=== PATIENT | male | born 1980 | race African-American/Black ===

== ENCOUNTER 2016-10-17 13:02 | Emergency (ER) | payer MEDICAID ==
[~2016-10-17] VITALS: Ht 193 cm; Wt 103.0 kg
[~2016-10-17 13:02] MED LIST: AMLO5TAB4 PO; ATEN50TA PO; ATOR10TA PO; LISI10TA5 PO
[2016-10-17] MEDS ORDERED: TRAMADOL 50MG TABLET PO ONE (17:00)
[2016-10-17] MEDS ORDERED: CLONIDINE 0.2MG TABLET PO NR (17:30)
[2016-10-17] MEDS ORDERED: HYDROCHLOROTHIAZIDE 25MG TABLET PO ONE (18:59)
[2016-10-17] MEDS ORDERED: LISINOPRIL 20MG TABLET PO ONE (19:00)
[2016-10-17] MEDS ORDERED: AMLODIPINE 10MG TABLET PO ONE (19:00)
[2016-10-17 21:25] VITALS: BP 149/88
== END 2016-10-17 22:24 | disposition home or self-care (01) ==
LOC: ER 14:34
DX: I10 Essential (primary) hypertension (principal); E78.00 Pure hypercholesterolemia, unspecified
CPT/HCPCS: 36415; 71010; 84484; 93005; 99285; Z7610

== ENCOUNTER 2018-04-13 15:13 | Emergency (ER) | payer MEDICAID ==
[~2018-04-13] VITALS: Ht 193 cm; Wt 158.0 kg
[2018-04-13] MEDS ORDERED: ALBUTEROL (0.083%) 2.5MG/3ML NEB HHN STA (18:14)
[2018-04-13] MEDS ORDERED: PREDNISONE 20MG TABLET PO STA (18:14)
[2018-04-13] MEDS ORDERED: CLONIDINE 0.1MG TABLET PO ONE (18:30)
[2018-04-13 19:07] VITALS: BP 160/98
== END 2018-04-13 19:09 | disposition home or self-care (01) ==
LOC: ER 15:13
DX: J40 Bronchitis, not specified as acute or chronic (principal); I10 Essential (primary) hypertension; F17.200 Nicotine dependence, unspecified, uncomplicated; E78.00 Pure hypercholesterolemia, unspecified; Z79.899 Other long term (current) drug therapy
CPT/HCPCS: 71045; 94640; 99283; J7512; J7611

== ENCOUNTER 2019-02-16 15:34 | Emergency (ER) | payer MEDICAID ==
[~2019-02-16] VITALS: Ht 193 cm; Wt 163.0 kg
[2019-02-16] MEDS ORDERED: KETOROLAC 60MG/2ML VIAL IM ONE (17:15)
[2019-02-16 19:05] VITALS: BP 164/102
== END 2019-02-16 19:15 | disposition home or self-care (01) ==
LOC: ER 15:34
DX: S60.221A Contusion of right hand, initial encounter (principal); S90.32XA Contusion of left foot, initial encounter; S39.012A Strain of muscle, fascia and tendon of lower back, initial encounter; I10 Essential (primary) hypertension; Y04.0XXA Assault by unarmed brawl or fight, initial encounter; Y93.89 Activity, other specified; Y92.89 Other specified places as the place of occurrence of the external cause; E66.9 Obesity, unspecified; Z68.41 Body mass index [BMI] 40.0-44.9, adult; Z79.899 Other long term (current) drug therapy
CPT/HCPCS: 72100; 73130; 73630; 96372; 99283; J1885

== ENCOUNTER 2019-04-08 12:30 | Emergency (ER) | payer MEDICAID ==
[~2019-04-08] VITALS: Ht 193 cm; Wt 160.0 kg
[2019-04-08] MEDS ORDERED: VISCOUS LIDOCAINE 2% 15 ML UDC PO STA (22:58)
[2019-04-08] MEDS ORDERED: FAMOTIDINE 20MG/2ML VIAL IV STA (22:58)
[2019-04-08] MEDS ORDERED: MAGNESIUM/ALUMINUM HYDROXIDE/SIMETHICONE 30ML UDC PO STA (22:58)
[2019-04-08 23:14] LABS: BASOPHILS % 0.7 % (0.0-2.0); EOSINOPHILS % 3.7 % (0.0-5.0); HEMATOCRIT. 44.5 % (42.0-52.0); HEMOGLOBIN. 14.7 g/dL (14.0-18.0); LYMPHOCYTES % 36.5 % (20.0-50.0); MEAN CORPUSCULAR HEMOGLOBIN 30.9 pg (28.0-32.0); MEAN CORPUSCULAR VOLUME 93.3 fL (80.0-94.0); MEAN PLATELET VOLUME 9.8 fl (7.4-10.4); MONOCYTES % 5.3 % (2.0-8.0); NEUTROPHILS % 53.8 % (40.0-76.0); PLATELET 211 x1000/uL (130-400); RED BLOOD CELL COUNT 4.77 mill/uL (4.7-6.1); RED CELL DISTRIBUTION WIDTH 13.8 % (11.6-14.6)
[2019-04-08 23:16] LABS: CHLORIDE 115 mEq/L (98-107)
[2019-04-09] MEDS ORDERED: POTASSIUM CHLORIDE 20MEQ TABLET SR PO ONE
[2019-04-09 01:45] VITALS: BP 160/98
== END 2019-04-09 01:49 | disposition home or self-care (01) ==
LOC: ER 12:30
DX: R10.13 Epigastric pain (principal); I10 Essential (primary) hypertension; F17.210 Nicotine dependence, cigarettes, uncomplicated; Z71.6 Tobacco abuse counseling; Z79.899 Other long term (current) drug therapy
CPT/HCPCS: 36415; 80053; 83690; 85025; 93005; 96374; 99284; 99406; J3490

== ENCOUNTER 2019-10-26 13:10 | Emergency (ER) | payer MEDICAID ==
[~2019-10-26] VITALS: Ht 193 cm; Wt 120.0 kg
[2019-10-26] MEDS ORDERED: MORPHINE SULFATE 4 MG/ML CPJ (NOT FOR IM USE) IV STA (13:42)
[2019-10-26] MEDS ORDERED: ONDANSETRON HCL 4MG/2ML INJ IV STA (13:42)
[2019-10-26 14:15] LABS: EOSINOPHILS % 4.5 % (0.0-5.0); HEMATOCRIT. 42.7 % (42.0-52.0); HEMOGLOBIN. 14.3 g/dL (14.0-18.0); MEAN CORPUSCULAR HEMOGLOBIN 31.3 pg (28.0-32.0); MEAN CORPUSCULAR VOLUME 93.3 fL (80.0-94.0); MEAN PLATELET VOLUME 9.7 fl (7.4-10.4); MONOCYTES % 7.2 % (2.0-8.0); NEUTROPHILS % 52.3 % (40.0-76.0); PLATELET 196 x1000/uL (130-400); RED BLOOD CELL COUNT 4.58 mill/uL (4.7-6.1); RED CELL DISTRIBUTION WIDTH 13.1 % (11.6-14.6)
[2019-10-26 14:24] LABS: CHLORIDE 108 mEq/L (98-107)
[2019-10-26 18:44] VITALS: BP 140/75
== END 2019-10-26 18:45 | disposition home or self-care (01) ==
LOC: ER 13:10
DX: I16.0 Hypertensive urgency (principal); M54.12 Radiculopathy, cervical region; I10 Essential (primary) hypertension
CPT/HCPCS: 36415; 72125; 80053; 85025; 93005; 96374; 96375; 99285; J2270; J2405

== ENCOUNTER 2020-12-09 16:35 | Emergency (ER) | payer MEDICAID ==
[~2020-12-09] VITALS: Ht 188 cm; Wt 163.0 kg
[~2020-12-09 16:35] MED LIST changes: +LISI10TA26 PO; -LISI10TA5 PO
[2020-12-09] MEDS ORDERED: IPRATROPIUM/ALBUTEROL 0.5-3(2.5)MG/3ML NEB HHN ONE (18:45)
[2020-12-09 19:05] LABS: BASOPHILS % 0.7 % (0.0-2.0); EOSINOPHILS % 5.2 % (0.0-5.0); HEMATOCRIT. 43.2 % (42.0-52.0); HEMOGLOBIN. 14.8 g/dL (14.0-18.0); LYMPHOCYTES % 35.5 % (20.0-50.0); MEAN CORPUSCULAR HEMOGLOBIN 31.3 pg (28.0-32.0); MEAN CORPUSCULAR VOLUME 91.5 fL (80.0-94.0); MEAN PLATELET VOLUME 8.9 fl (7.4-10.4); MONOCYTES % 6.8 % (2.0-8.0); NEUTROPHILS % 51.8 % (40.0-76.0); PLATELET 210 x1000/uL (130-400); RED BLOOD CELL COUNT 4.72 mill/uL (4.7-6.1); RED CELL DISTRIBUTION WIDTH 13.6 % (11.6-14.6)
[2020-12-09 19:09] LABS: CHLORIDE 109 mEq/L (98-107)
[2020-12-09] MEDS ORDERED: ALBU6.7H9 INH (20:11)
[2020-12-09 20:45] VITALS: BP 131/85
== END 2020-12-09 20:50 | disposition home or self-care (01) ==
LOC: ER 16:35
DX: J40 Bronchitis, not specified as acute or chronic (principal); F17.290 Nicotine dependence, other tobacco product, uncomplicated; F12.10 Cannabis abuse, uncomplicated; I10 Essential (primary) hypertension; Z20.822 Contact with and (suspected) exposure to COVID-19
CPT/HCPCS: 36415; 71045; 80053; 83880; 84484; 85025; 93005; 94640; 96372; 99285; C9803; U0003; U0005; Z7610

== ENCOUNTER 2021-08-01 23:02 | Emergency (ER) | payer MEDICAID ==
[~2021-08-01] VITALS: Ht 195.6 cm; Wt 163.0 kg
[~2021-08-01 23:02] MED LIST changes: +ALBU6.7H9 INH
[2021-08-01] MEDS ORDERED: ASPIRIN 81MG TABLET PO ONE (23:15)
[2021-08-01 23:40] LABS: BASOPHILS % 1.1 % (0.0-2.0); EOSINOPHILS % 4.3 % (0.0-5.0); HEMATOCRIT. 44.2 % (42.0-52.0); HEMOGLOBIN. 14.7 g/dL (14.0-18.0); LYMPHOCYTES % 36.2 % (20.0-50.0); MEAN CORPUSCULAR HEMOGLOBIN 30.9 pg (28.0-32.0); MEAN CORPUSCULAR VOLUME 92.6 fL (80.0-94.0); MEAN PLATELET VOLUME 9.7 fl (7.4-10.4); MONOCYTES % 6.7 % (2.0-8.0); NEUTROPHILS % 51.7 % (40.0-76.0); PLATELET 199 x1000/uL (130-400); RED BLOOD CELL COUNT 4.77 mill/uL (4.7-6.1); RED CELL DISTRIBUTION WIDTH 13.6 % (11.6-14.6)
[2021-08-01 23:47] LABS: CHLORIDE 108 mEq/L (98-107)
[2021-08-02] MEDS ORDERED: ASPIRIN 81MG TABLET PO NR (01:00)
[2021-08-02] MEDS ORDERED: POTASSIUM CHLORIDE 20MEQ TABLET SR PO ONE (01:30)
[2021-08-02 04:18] VITALS: BP 158/110
[2021-08-02] MEDS ORDERED: IOHEXOL-350 100 ML BOTTLE ONE (04:23)
== END 2021-08-02 04:37 | disposition home or self-care (01) ==
LOC: ER 23:02
DX: R07.89 Other chest pain (principal); F12.10 Cannabis abuse, uncomplicated; I11.0 Hypertensive heart disease with heart failure; I50.9 Heart failure, unspecified; E78.00 Pure hypercholesterolemia, unspecified
CPT/HCPCS: 36415; 71045; 71275; 80053; 83880; 84484; 85025; 85379; 93005; 99285; Q9967

== ENCOUNTER 2021-08-22 11:40 | Emergency (ER) | payer MEDICAID ==
[~2021-08-22] VITALS: Ht 195.6 cm; Wt 165.0 kg
[2021-08-22 11:43] VITALS: BP 161/104
[2021-08-22 12:27] LABS: EOSINOPHILS % 4.6 % (0.0-5.0); HEMATOCRIT. 42.2 % (42.0-52.0); LYMPHOCYTES % 35.6 % (20.0-50.0); MEAN CORPUSCULAR HEMOGLOBIN 30.9 pg (28.0-32.0); MEAN CORPUSCULAR VOLUME 93.2 fL (80.0-94.0); MEAN PLATELET VOLUME 9.6 fl (7.4-10.4); MONOCYTES % 5.9 % (2.0-8.0); NEUTROPHILS % 52.9 % (40.0-76.0); PLATELET 186 x1000/uL (130-400); RED BLOOD CELL COUNT 4.53 mill/uL (4.7-6.1); RED CELL DISTRIBUTION WIDTH 14.1 % (11.6-14.6)
[2021-08-22 12:31] LABS: CHLORIDE 109 mEq/L (98-107)
[2021-08-22] MEDS ORDERED: MED4 MT (17:11)
[2021-08-22] MEDS ORDERED: ALBU6.7H9 INH (17:11)
[2021-08-22] MEDS ORDERED: AZIT250T12 MT (17:11)
== END 2021-08-22 17:23 | disposition home or self-care (01) ==
LOC: ER 11:40
DX: J20.9 Acute bronchitis, unspecified (principal); J84.9 Interstitial pulmonary disease, unspecified; I44.7 Left bundle-branch block, unspecified; F17.210 Nicotine dependence, cigarettes, uncomplicated; Z71.6 Tobacco abuse counseling
CPT/HCPCS: 36415; 71045; 80053; 84484; 85025; 93005; 99285; 99406

== ENCOUNTER 2021-09-04 11:03 | Inpatient (IN) | payer MEDICAID, OTHER ==
[~2021-09-04] VITALS: Ht 193 cm; Wt 168.7 kg
[~2021-09-04 11:03] MED LIST changes: +AZIT250T12 MT; +MED4 MT
[2021-09-04 12:09] LABS: BASOPHILS % 0.5 % (0.0-2.0); EOSINOPHILS % 3.4 % (0.0-5.0); HEMATOCRIT. 43.2 % (42.0-52.0); LYMPHOCYTES % 26.4 % (20.0-50.0); MEAN CORPUSCULAR HEMOGLOBIN 30.9 pg (28.0-32.0); MEAN CORPUSCULAR VOLUME 95.1 fL (80.0-94.0); MEAN PLATELET VOLUME 9.1 fl (7.4-10.4); MONOCYTES % 5.9 % (2.0-8.0); NEUTROPHILS % 63.8 % (40.0-76.0); PLATELET 192 x1000/uL (130-400); RED BLOOD CELL COUNT 4.54 mill/uL (4.7-6.1); RED CELL DISTRIBUTION WIDTH 14.7 % (11.6-14.6)
[2021-09-04 12:18] LABS: CHLORIDE 110 mEq/L (98-107)
[2021-09-04 13:43] LABS: CLARITY URINE CLEAR (CLEAR); COLOR URINE DARK YELLOW (YELLOW); KETONES URINE TRACE (NEGATIVE); LEUKOCYTE ESTERASE URINE NEGATIVE (NEGATIVE); NITRITE URINE NEGATIVE (NEGATIVE); OCCULT BLOOD URINE NEGATIVE (NEGATIVE); PROTEIN URINE TRACE (NEGATIVE); SPECIFIC GRAVITY URINE 1.025 (1.005-1.030)
[2021-09-04] MEDS ORDERED: ASPIRIN 325MG EC TABLET PO ONE (17:00)
[2021-09-04 17:45] VITALS: BP 150/103
[2021-09-04] MEDS ORDERED: IPRATROPIUM/ALBUTEROL 0.5-3(2.5)MG/3ML NEB HHN PRN (18:15)
[2021-09-04] MEDS ORDERED: ONDANSETRON HCL 4MG/2ML INJ IV PRN (18:15)
[2021-09-04] MEDS ORDERED: CLONIDINE 0.1MG TABLET PO PRN (18:15)
[2021-09-04] MEDS ORDERED: ENOXAPARIN 40MG/0.4ML SYR SUBCUT SCH (18:15)
[2021-09-04] MEDS ORDERED: ACETAMINOPHEN 325MG TABLET PO PRN (18:15)
[2021-09-04] MEDS ORDERED: DIPHENHYDRAMINE 50MG/ML VIAL IV PRN (18:15)
[2021-09-04 20:00] VITALS: BP 114/79
[2021-09-04 20:05] VITALS: BP 114/79
[2021-09-04] MEDS: ENOXAPARIN 40MG/0.4ML SYR SUBCUT SCH (20:28)
[2021-09-04] MEDS ORDERED: IOHEXOL-350 100 ML BOTTLE ONE (23:12)
[2021-09-05 04:00] VITALS: BP 137/97
[2021-09-05 06:43] LABS: BASOPHILS % 0.7 % (0.0-2.0); EOSINOPHILS % 3.4 % (0.0-5.0); HEMATOCRIT. 42.9 % (42.0-52.0); HEMOGLOBIN. 14.1 g/dL (14.0-18.0); LYMPHOCYTES % 38.9 % (20.0-50.0); MEAN CORPUSCULAR HEMOGLOBIN 31.1 pg (28.0-32.0); MEAN CORPUSCULAR VOLUME 94.8 fL (80.0-94.0); MEAN PLATELET VOLUME 9.8 fl (7.4-10.4); MONOCYTES % 5.7 % (2.0-8.0); NEUTROPHILS % 51.3 % (40.0-76.0); PLATELET 209 x1000/uL (130-400); RED BLOOD CELL COUNT 4.52 mill/uL (4.7-6.1); RED CELL DISTRIBUTION WIDTH 14.8 % (11.6-14.6)
[2021-09-05 06:51] LABS: CHLORIDE 110 mEq/L (98-107)
[2021-09-05 08:00] VITALS: BP 140/97
[2021-09-05] MEDS: ENOXAPARIN 40MG/0.4ML SYR SUBCUT SCH (08:16)
[2021-09-05] MEDS ORDERED: FUROSEMIDE 40MG/4ML VIAL IVP NR (10:00)
[2021-09-05 12:00] VITALS: BP 155/101
[2021-09-05 16:00] VITALS: BP 143/100
[2021-09-05] MEDS: LOSARTAN POTASSIUM 25 MG TABLET PO SCH (16:54)
[2021-09-05] MEDS: FUROSEMIDE 40MG/4ML VIAL IVP SCH (16:54)
[2021-09-05] MEDS: SPIRONOLACTONE 25MG TABLET PO SCH (16:55)
[2021-09-05 18:02] LABS: *AMPHETAMINES SCREEN URINE NEGATIVE (NEGATIVE); *BARBITURATES SCREEN URINE NEGATIVE (NEGATIVE); *BENZODIAZEPINES SCREEN URINE NEGATIVE (NEGATIVE); *COCAINE SCREEN URINE NEGATIVE (NEGATIVE); CANNABINOID URINE SCREEN NEGATIVE (NEGATIVE); METHADONE URINE SCREEN NEGATIVE (NEGATIVE); OPIATES URINE SCREEN NEGATIVE (NEGATIVE); PHENCYCLIDINE URINE SCREEN NEGATIVE (NEGATIVE)
[2021-09-05 18:08] LABS: CLARITY URINE CLEAR (CLEAR); COLOR URINE YELLOW (YELLOW); KETONES URINE NEGATIVE (NEGATIVE); LEUKOCYTE ESTERASE URINE NEGATIVE (NEGATIVE); NITRITE URINE NEGATIVE (NEGATIVE); OCCULT BLOOD URINE NEGATIVE (NEGATIVE); PROTEIN URINE NEGATIVE (NEGATIVE); SPECIFIC GRAVITY URINE 1.008 (1.005-1.030); UROBILINOGEN URINE 0.2 E.U./dL (0.2-1.0)
[2021-09-05 18:21] LABS: BG BASE EXCESS 2.6 mmol/L (-2.0-2.0); BG CARBOXYHEMOGLOBIN 0.7 % (0.5-1.5); BG DEOXYHEMOGLOBIN 10.5 % (0.0-5.0); BG FRACTION INSPIRED OXYGEN 21; BG HCO3 ACT 26.5 mmol/L (22.0-26.0); BG METHEMOGLOBIN 0.3 % (0.0-1.5); BG OXYGEN SATURATION 89.4 % (92.0-98.5); BG OXYHEMOGLOBIN 88.5 % (94.0-97.0); BG PCO2 38.5 mmHg (35.0-45.0); BG PH 7.455 (7.350-7.450); BG PO2 55.9 mmHg (75.0-100.0); BG SAMPLE SITE RIGHT RADIAL; BG TOTAL HEMOGLOBIN 14.9 g/dL (12.0-18.0); BG VENT MODE ROOM AIR
[2021-09-05 20:00] VITALS: BP 137/88
[2021-09-05] MEDS: CARVEDILOL 3.125 MG TABLET PO SCH (21:49)
[2021-09-06] VITALS: BP 121/79
[2021-09-06] MEDS: ENOXAPARIN 40MG/0.4ML SYR SUBCUT SCH ×3 (01:31→20:27)
[2021-09-06 04:00] VITALS: BP 137/99
[2021-09-06] MEDS: FUROSEMIDE 40MG/4ML VIAL IVP SCH ×2 (06:21→17:10)
[2021-09-06 06:34] LABS: BASOPHILS % 0.7 % (0.0-2.0); HEMATOCRIT. 40.4 % (42.0-52.0); HEMOGLOBIN. 13.4 g/dL (14.0-18.0); LYMPHOCYTES % 32.5 % (20.0-50.0); MEAN CORPUSCULAR HEMOGLOBIN 31.3 pg (28.0-32.0); MEAN CORPUSCULAR VOLUME 94.5 fL (80.0-94.0); MEAN PLATELET VOLUME 9.9 fl (7.4-10.4); NEUTROPHILS % 55.8 % (40.0-76.0); PLATELET 187 x1000/uL (130-400); RED BLOOD CELL COUNT 4.27 mill/uL (4.7-6.1); RED CELL DISTRIBUTION WIDTH 14.5 % (11.6-14.6)
[2021-09-06 06:46] LABS: CHLORIDE 108 mEq/L (98-107)
[2021-09-06 08:00] VITALS: BP 125/84
[2021-09-06] MEDS: CARVEDILOL 3.125 MG TABLET PO SCH ×2 (09:42→20:28)
[2021-09-06] MEDS: LOSARTAN POTASSIUM 25 MG TABLET PO SCH (09:42)
[2021-09-06] MEDS: SPIRONOLACTONE 25MG TABLET PO SCH (09:42)
[2021-09-06 12:00] VITALS: BP 122/90
[2021-09-06 20:00] VITALS: BP 136/91
[2021-09-07] VITALS: BP 135/85
[2021-09-07 04:00] VITALS: BP 121/85
[2021-09-07 05:53] LABS: CHLORIDE 108 mEq/L (98-107)
[2021-09-07 06:11] LABS: BASOPHILS % 0.7 % (0.0-2.0); HEMATOCRIT. 41.6 % (42.0-52.0); HEMOGLOBIN. 13.5 g/dL (14.0-18.0); LYMPHOCYTES % 38.4 % (20.0-50.0); MEAN CORPUSCULAR HEMOGLOBIN 30.7 pg (28.0-32.0); MEAN CORPUSCULAR VOLUME 94.5 fL (80.0-94.0); MEAN PLATELET VOLUME 9.7 fl (7.4-10.4); MONOCYTES % 7.2 % (2.0-8.0); NEUTROPHILS % 49.7 % (40.0-76.0); PLATELET 186 x1000/uL (130-400); RED CELL DISTRIBUTION WIDTH 14.7 % (11.6-14.6)
[2021-09-07] MEDS: FUROSEMIDE 40MG/4ML VIAL IVP SCH (06:19)
[2021-09-07 08:58] VITALS: BP 122/80
[2021-09-07] MEDS: SPIRONOLACTONE 25MG TABLET PO SCH (09:06)
[2021-09-07] MEDS: CARVEDILOL 3.125 MG TABLET PO SCH (09:06)
[2021-09-07] MEDS: LOSARTAN POTASSIUM 25 MG TABLET PO SCH (09:06)
[2021-09-07] MEDS: ENOXAPARIN 40MG/0.4ML SYR SUBCUT SCH (09:07)
[2021-09-07] MEDS ORDERED: FURO40TA5 MT (10:44)
[2021-09-07] MEDS ORDERED: POTA8CAP20 MT (10:44)
[2021-09-07] MEDS ORDERED: SPIR25TA PO (10:44)
[2021-09-07] MEDS ORDERED: LOSA25TA3 PO (10:44)
[2021-09-07] MEDS ORDERED: COR3 PO (10:44)
[2021-09-07 12:00] VITALS: BP 117/86
[2021-09-07 12:47] VITALS: BP 117/86
[2021-09-07] MEDS ORDERED: CARVEDILOL 3.125 MG TABLET PO SCH (21:00)
== END 2021-09-07 16:46 | disposition home or self-care (01) | DRG 194 ==
LOC: ER 11:03 → 6WST 12:35 → ENRESERV 15:36
PROVIDERS: ADMIT Internal Medicine; ATTEND Internal Medicine
DX: I11.0 Hypertensive heart disease with heart failure (principal); J96.00 Acute respiratory failure, unspecified whether with hypoxia or hypercapnia; I50.21 Acute systolic (congestive) heart failure; I42.0 Dilated cardiomyopathy; J81.1 Chronic pulmonary edema; K76.0 Fatty (change of) liver, not elsewhere classified; Z20.822 Contact with and (suspected) exposure to COVID-19; E66.01 Morbid (severe) obesity due to excess calories; E78.5 Hyperlipidemia, unspecified; G47.33 Obstructive sleep apnea (adult) (pediatric); I34.0 Nonrheumatic mitral (valve) insufficiency; E78.00 Pure hypercholesterolemia, unspecified; J20.9 Acute bronchitis, unspecified; E80.6 Other disorders of bilirubin metabolism; K76.9 Liver disease, unspecified; Z68.42 Body mass index [BMI] 45.0-49.9, adult; Z86.16 Personal history of COVID-19; F17.200 Nicotine dependence, unspecified, uncomplicated; Z79.899 Other long term (current) drug therapy
CPT/HCPCS: 36415; 36600; 71045; 71275; 76700; 80048; 80053; 80305; 81003; 82375; 82805; 83880; 84484; 85025; 85379; 87426; 93005; 93306; 93970; 94640; 94664; 97162; 97166; 99285; C9803; J1650; J1940; Q9967

== ENCOUNTER 2021-10-22 12:13 | Inpatient (IN) | payer MEDICAID, OTHER ==
[~2021-10-22] VITALS: Ht 193 cm; Wt 164.5 kg
[~2021-10-22 12:13] MED LIST changes: -AMLO5TAB4 PO; -ATEN50TA PO; -ATOR10TA PO; -AZIT250T12 MT; +COR3 PO; +FURO40TA5 MT; -LISI10TA26 PO; +LOSA25TA3 PO; -MED4 MT; +POTA8CAP20 MT; +SPIR25TA PO
[2021-10-22] MEDS ORDERED: FUROSEMIDE 40MG/4ML VIAL IV ONE (13:45)
[2021-10-22 14:00] LABS: EOSINOPHILS % 3.7 % (0.0-5.0); HEMATOCRIT. 42.8 % (42.0-52.0); HEMOGLOBIN. 14.2 g/dL (14.0-18.0); LYMPHOCYTES % 32.5 % (20.0-50.0); MEAN CORPUSCULAR HEMOGLOBIN 31.1 pg (28.0-32.0); MEAN CORPUSCULAR VOLUME 94.2 fL (80.0-94.0); MEAN PLATELET VOLUME 9.8 fl (7.4-10.4); MONOCYTES % 7.5 % (2.0-8.0); NEUTROPHILS % 55.3 % (40.0-76.0); PLATELET 171 x1000/uL (130-400); RED BLOOD CELL COUNT 4.55 mill/uL (4.7-6.1); RED CELL DISTRIBUTION WIDTH 14.2 % (11.6-14.6)
[2021-10-22 14:48] LABS: CHLORIDE 109 mEq/L (98-107)
[2021-10-22 23:00] VITALS: BP 147/107
[2021-10-22] MEDS ORDERED: *PATIENT'S OWN MEDICATION STORAGE XX SCH (23:45)
[2021-10-23] VITALS: BP_SYST 135; BP_SYST 147; BP_DIAS 107; BP_DIAS 98
[2021-10-23] MEDS ORDERED: ONDANSETRON HCL 4MG/2ML INJ IV PRN
[2021-10-23] MEDS ORDERED: CLONIDINE 0.1MG TABLET PO PRN
[2021-10-23] MEDS ORDERED: ACETAMINOPHEN 325MG TABLET PO PRN
[2021-10-23 04:00] VITALS: BP 115/83
[2021-10-23 06:31] LABS: *AMPHETAMINES SCREEN URINE NEGATIVE (NEGATIVE); *BARBITURATES SCREEN URINE NEGATIVE (NEGATIVE); *BENZODIAZEPINES SCREEN URINE NEGATIVE (NEGATIVE); *COCAINE SCREEN URINE NEGATIVE (NEGATIVE); CANNABINOID URINE SCREEN NEGATIVE (NEGATIVE); METHADONE URINE SCREEN NEGATIVE (NEGATIVE); OPIATES URINE SCREEN NEGATIVE (NEGATIVE); PHENCYCLIDINE URINE SCREEN NEGATIVE (NEGATIVE)
[2021-10-23] MEDS ORDERED: FUROSEMIDE 40MG/4ML VIAL IVP SCH (07:15)
[2021-10-23 08:00] VITALS: BP 128/82
[2021-10-23] MEDS: LOSARTAN POTASSIUM 25 MG TABLET PO SCH (08:47)
[2021-10-23] MEDS: SPIRONOLACTONE 25MG TABLET PO SCH (08:47)
[2021-10-23] MEDS: FUROSEMIDE 40MG/4ML VIAL IVP SCH ×2 (08:47→18:14)
[2021-10-23] MEDS: POTASSIUM CHLORIDE 8 MEQ TABLET.SA PO SCH (08:48)
[2021-10-23] MEDS: AMIODARONE HCL 200 MG TABLET PO SCH (08:48)
[2021-10-23] MEDS: CARVEDILOL 6.25 MG TABLET PO SCH ×2 (08:48→20:35)
[2021-10-23] MEDS ORDERED: ENOXAPARIN 30MG/0.3ML SYR SUBCUT SCH (09:00)
[2021-10-23 09:44] LABS: CHLORIDE 107 mEq/L (98-107)
[2021-10-23 09:51] LABS: HDL CHOLESTEROL 38 mg/dL (40-59); LDL CHOLESTEROL 97 mg/dL (5-100)
[2021-10-23 11:47] VITALS: BP 130/90
[2021-10-23] MEDS ORDERED: IPRATROPIUM/ALBUTEROL 0.5-3(2.5)MG/3ML NEB HHN PRN (12:45)
[2021-10-23 16:00] VITALS: BP 132/82
[2021-10-23] MEDS: ENOXAPARIN 40MG/0.4ML SYR SUBCUT SCH (20:35)
[2021-10-23 20:39] VITALS: BP 136/96
[2021-10-24] VITALS: BP 118/73
[2021-10-24 04:00] VITALS: BP 139/95
[2021-10-24] MEDS: FUROSEMIDE 40MG/4ML VIAL IVP SCH ×2 (06:17→17:08)
[2021-10-24 08:00] VITALS: BP 129/79
[2021-10-24] MEDS: AMIODARONE HCL 200 MG TABLET PO SCH (08:27)
[2021-10-24] MEDS: LOSARTAN POTASSIUM 25 MG TABLET PO SCH (08:27)
[2021-10-24] MEDS: POTASSIUM CHLORIDE 8 MEQ TABLET.SA PO SCH (08:28)
[2021-10-24] MEDS: SPIRONOLACTONE 25MG TABLET PO SCH (08:28)
[2021-10-24] MEDS: CARVEDILOL 6.25 MG TABLET PO SCH ×2 (08:28→20:47)
[2021-10-24] MEDS: ENOXAPARIN 40MG/0.4ML SYR SUBCUT SCH ×2 (08:29→20:47)
[2021-10-24 09:30] LABS: BASOPHILS % 0.8 % (0.0-2.0); EOSINOPHILS % 5.6 % (0.0-5.0); HEMATOCRIT. 43.6 % (42.0-52.0); HEMOGLOBIN. 14.2 g/dL (14.0-18.0); LYMPHOCYTES % 38.2 % (20.0-50.0); MEAN CORPUSCULAR HEMOGLOBIN 30.9 pg (28.0-32.0); MEAN CORPUSCULAR VOLUME 94.8 fL (80.0-94.0); MEAN PLATELET VOLUME 9.8 fl (7.4-10.4); NEUTROPHILS % 49.4 % (40.0-76.0); PLATELET 160 x1000/uL (130-400); RED BLOOD CELL COUNT 4.59 mill/uL (4.7-6.1); RED CELL DISTRIBUTION WIDTH 14.7 % (11.6-14.6)
[2021-10-24 09:45] LABS: CHLORIDE 107 mEq/L (98-107)
[2021-10-24 12:00] VITALS: BP 106/67
[2021-10-24 16:00] VITALS: BP 106/69
[2021-10-24 20:00] VITALS: BP 134/95
[2021-10-25] VITALS: BP 127/80
[2021-10-25 00:16] VITALS: BP 127/80
[2021-10-25 04:00] VITALS: BP 120/80
[2021-10-25 08:00] VITALS: BP 122/87
[2021-10-25] MEDS: FUROSEMIDE 40MG/4ML VIAL IVP SCH ×3 (09:47→17:02)
[2021-10-25] MEDS: ENOXAPARIN 40MG/0.4ML SYR SUBCUT SCH ×2 (09:47→20:48)
[2021-10-25] MEDS ORDERED: METOLAZONE 2.5MG TABLET PO NR (10:45)
[2021-10-25 12:00] VITALS: BP 123/95
[2021-10-25] MEDS: POTASSIUM CHLORIDE 8 MEQ TABLET.SA PO SCH (12:32)
[2021-10-25] MEDS: LOSARTAN POTASSIUM 25 MG TABLET PO SCH (12:32)
[2021-10-25] MEDS: SPIRONOLACTONE 25MG TABLET PO SCH (12:32)
[2021-10-25] MEDS: AMIODARONE HCL 200 MG TABLET PO SCH (12:32)
[2021-10-25] MEDS: CARVEDILOL 6.25 MG TABLET PO SCH ×2 (12:33→20:45)
[2021-10-25 17:08] LABS: BASOPHILS % 1.1 % (0.0-2.0); EOSINOPHILS % 5.3 % (0.0-5.0); HEMATOCRIT. 41.7 % (42.0-52.0); HEMOGLOBIN. 13.5 g/dL (14.0-18.0); LYMPHOCYTES % 38.3 % (20.0-50.0); MEAN CORPUSCULAR HEMOGLOBIN 30.6 pg (28.0-32.0); MEAN CORPUSCULAR VOLUME 94.7 fL (80.0-94.0); MEAN PLATELET VOLUME 9.8 fl (7.4-10.4); NEUTROPHILS % 43.3 % (40.0-76.0); PLATELET 166 x1000/uL (130-400); RED CELL DISTRIBUTION WIDTH 14.2 % (11.6-14.6)
[2021-10-25 17:31] LABS: CHLORIDE 107 mEq/L (98-107)
[2021-10-25 20:00] VITALS: BP 126/81
[2021-10-26] VITALS: BP 133/84
[2021-10-26 04:00] VITALS: BP 136/78
[2021-10-26 07:18] LABS: BASOPHILS % 0.9 % (0.0-2.0); EOSINOPHILS % 5.8 % (0.0-5.0); HEMATOCRIT. 41.7 % (42.0-52.0); HEMOGLOBIN. 13.6 g/dL (14.0-18.0); LYMPHOCYTES % 48.1 % (20.0-50.0); MEAN CORPUSCULAR HEMOGLOBIN 30.7 pg (28.0-32.0); MEAN CORPUSCULAR VOLUME 94.2 fL (80.0-94.0); MEAN PLATELET VOLUME 9.6 fl (7.4-10.4); MONOCYTES % 8.7 % (2.0-8.0); NEUTROPHILS % 36.5 % (40.0-76.0); PLATELET 158 x1000/uL (130-400); RED BLOOD CELL COUNT 4.42 mill/uL (4.7-6.1); RED CELL DISTRIBUTION WIDTH 14.1 % (11.6-14.6)
[2021-10-26 07:39] LABS: CHLORIDE 106 mEq/L (98-107)
[2021-10-26 08:00] VITALS: BP 115/79
[2021-10-26] MEDS: POTASSIUM CHLORIDE 8 MEQ TABLET.SA PO SCH (09:02)
[2021-10-26] MEDS: LOSARTAN POTASSIUM 25 MG TABLET PO SCH (09:02)
[2021-10-26] MEDS: CARVEDILOL 6.25 MG TABLET PO SCH (09:02)
[2021-10-26] MEDS: AMIODARONE HCL 200 MG TABLET PO SCH (09:02)
[2021-10-26] MEDS: SPIRONOLACTONE 25MG TABLET PO SCH (09:02)
[2021-10-26] MEDS: FUROSEMIDE 40MG/4ML VIAL IVP SCH ×2 (09:02→13:42)
[2021-10-26] MEDS: ENOXAPARIN 40MG/0.4ML SYR SUBCUT SCH (09:03)
[2021-10-26 12:00] VITALS: BP 129/84
[2021-10-26] MEDS ORDERED: AMI2 PO (13:30)
[2021-10-26] MEDS ORDERED: FURO40TA5 MT (13:30)
[2021-10-26 14:12] VITALS: BP 129/84
== END 2021-10-26 14:00 | disposition home or self-care (01) | DRG 194 ==
LOC: ER 12:13 → EDBEDREQTM 15:32 → EDBEDREQ 15:32 → 7WST 22:46
PROVIDERS: ADMIT Internal Medicine; ATTEND Internal Medicine
DX: I11.0 Hypertensive heart disease with heart failure (principal); J96.01 Acute respiratory failure with hypoxia; I42.0 Dilated cardiomyopathy; F17.200 Nicotine dependence, unspecified, uncomplicated; E66.01 Morbid (severe) obesity due to excess calories; E78.00 Pure hypercholesterolemia, unspecified; Z68.41 Body mass index [BMI] 40.0-44.9, adult; Z90.10 Acquired absence of unspecified breast and nipple; Z79.899 Other long term (current) drug therapy; I50.23 Acute on chronic systolic (congestive) heart failure
CPT/HCPCS: 36415; 71045; 80048; 80053; 80061; 80305; 83735; 83880; 84484; 85025; 93005; 93306; 99285; J1650; J1940

== ENCOUNTER 2021-11-29 21:08 | Inpatient (IN) | payer OTHER ==
[~2021-11-29] VITALS: Ht 193 cm; Wt 168.3 kg
[~2021-11-29 21:08] MED LIST changes: +AMI2 PO; -POTA8CAP20 MT
[2021-11-29] MEDS ORDERED: NITROGLYCERIN OINT 1GM/INCH UDPKT TD ONE (22:15)
[2021-11-29] MEDS ORDERED: ASPIRIN 81MG TABLET PO ONE (22:15)
[2021-11-29 22:50] LABS: BASOPHILS % 1.3 % (0.0-2.0); EOSINOPHILS % 3.8 % (0.0-5.0); HEMATOCRIT. 37.6 % (42.0-52.0); HEMOGLOBIN. 12.1 g/dL (14.0-18.0); LYMPHOCYTES % 27.3 % (20.0-50.0); MEAN CORPUSCULAR HEMOGLOBIN 30.3 pg (28.0-32.0); MEAN CORPUSCULAR VOLUME 94.3 fL (80.0-94.0); MEAN PLATELET VOLUME 8.2 fl (7.4-10.4); MONOCYTES % 5.9 % (2.0-8.0); NEUTROPHILS % 61.7 % (40.0-76.0); PLATELET 243 x1000/uL (130-400); RED BLOOD CELL COUNT 3.98 mill/uL (4.7-6.1); RED CELL DISTRIBUTION WIDTH 14.8 % (11.6-14.6)
[2021-11-29 22:58] LABS: CHLORIDE 109 mEq/L (98-107)
[2021-11-29] MEDS ORDERED: FUROSEMIDE 40MG/4ML VIAL IVP ONE (23:00)
[2021-11-30 03:50] VITALS: BP 142/102
[2021-11-30] MEDS ORDERED: CARV6.2548 PO (04:12)
[2021-11-30] MEDS ORDERED: POTA8CAP20 PO (04:12)
[2021-11-30] MEDS ORDERED: AMLO10TA80 PO (04:12)
[2021-11-30] MEDS ORDERED: CLONIDINE 0.1MG TABLET PO PRN (04:30)
[2021-11-30] MEDS ORDERED: ACETAMINOPHEN 325MG TABLET PO PRN (04:30)
[2021-11-30] MEDS ORDERED: ONDANSETRON HCL 4MG/2ML INJ IV PRN (04:45)
[2021-11-30] MEDS ORDERED: *PATIENT'S OWN MEDICATION STORAGE XX SCH (05:00)
[2021-11-30 08:05] VITALS: BP 137/104
[2021-11-30] MEDS: CARVEDILOL 6.25 MG TABLET PO SCH ×2 (08:25→21:12)
[2021-11-30] MEDS: AMIODARONE HCL 200 MG TABLET PO SCH (08:26)
[2021-11-30] MEDS: SPIRONOLACTONE 25MG TABLET PO SCH (08:26)
[2021-11-30] MEDS ORDERED: ENOXAPARIN 40MG/0.4ML SYR SUBCUT SCH (09:00)
[2021-11-30] MEDS ORDERED: FUROSEMIDE 40MG/4ML VIAL IVP SCH (09:00)
[2021-11-30] MEDS ORDERED: LOSARTAN POTASSIUM 25 MG TABLET PO SCH (09:00)
[2021-11-30 11:07] LABS: EOSINOPHILS % 4.2 % (0.0-5.0); HEMATOCRIT. 37.3 % (42.0-52.0); HEMOGLOBIN. 12.1 g/dL (14.0-18.0); MEAN CORPUSCULAR HEMOGLOBIN 30.5 pg (28.0-32.0); MEAN CORPUSCULAR VOLUME 94.6 fL (80.0-94.0); MEAN PLATELET VOLUME 8.7 fl (7.4-10.4); MONOCYTES % 5.7 % (2.0-8.0); NEUTROPHILS % 60.1 % (40.0-76.0); PLATELET 227 x1000/uL (130-400); RED BLOOD CELL COUNT 3.95 mill/uL (4.7-6.1); RED CELL DISTRIBUTION WIDTH 14.9 % (11.6-14.6)
[2021-11-30 11:26] LABS: CHLORIDE 110 mEq/L (98-107)
[2021-11-30 11:34] LABS: HDL CHOLESTEROL 31 mg/dL (40-59); LDL CHOLESTEROL 88 mg/dL (5-100)
[2021-11-30 12:00] VITALS: BP 140/92
[2021-11-30] MEDS: AMLODIPINE 5MG TABLET PO SCH (12:45)
[2021-11-30] MEDS: POTASSIUM CHLORIDE 20MEQ TABLET SR PO SCH (13:30)
[2021-11-30 16:00] VITALS: BP 136/84
[2021-11-30] MEDS: FUROSEMIDE 40MG/4ML VIAL IVP SCH (16:52)
[2021-11-30 20:00] VITALS: BP 135/93
[2021-12-01] VITALS: BP 126/83
[2021-12-01 04:00] VITALS: BP 132/81
[2021-12-01 08:00] VITALS: BP 131/93
[2021-12-01] MEDS ORDERED: ENOXAPARIN 40MG/0.4ML SYR SUBCUT SCH (09:00)
[2021-12-01] MEDS: POTASSIUM CHLORIDE 20MEQ TABLET SR PO SCH (09:27)
[2021-12-01] MEDS: SPIRONOLACTONE 25MG TABLET PO SCH (09:27)
[2021-12-01] MEDS: AMLODIPINE 5MG TABLET PO SCH (09:27)
[2021-12-01] MEDS: CARVEDILOL 6.25 MG TABLET PO SCH ×2 (09:27→20:42)
[2021-12-01] MEDS: AMIODARONE HCL 200 MG TABLET PO SCH (09:27)
[2021-12-01] MEDS: LOSARTAN POTASSIUM 100 MG TABLET PO SCH (09:27)
[2021-12-01] MEDS: FUROSEMIDE 40MG/4ML VIAL IVP SCH ×2 (09:28→17:37)
[2021-12-01] MEDS: ASPIRIN 81MG EC TABLET PO SCH (10:45)
[2021-12-01 12:00] VITALS: BP 109/81
[2021-12-01] MEDS ORDERED: METOLAZONE 2.5MG TABLET PO NR (13:45)
[2021-12-01 16:00] VITALS: BP 113/70
[2021-12-01 20:00] VITALS: BP 108/76
[2021-12-01] MEDS: ENOXAPARIN 40MG/0.4ML SYR SUBCUT SCH (20:44)
[2021-12-02] VITALS: BP 127/85
[2021-12-02 08:00] VITALS: BP 136/97
[2021-12-02] MEDS ORDERED: BUMETANIDE 1MG TABLET PO SCH (09:00)
[2021-12-02] MEDS: ENOXAPARIN 40MG/0.4ML SYR SUBCUT SCH (09:04)
[2021-12-02] MEDS: AMLODIPINE 5MG TABLET PO SCH (09:05)
[2021-12-02] MEDS: AMIODARONE HCL 200 MG TABLET PO SCH (09:05)
[2021-12-02] MEDS: LOSARTAN POTASSIUM 100 MG TABLET PO SCH (09:05)
[2021-12-02] MEDS: SPIRONOLACTONE 25MG TABLET PO SCH (09:05)
[2021-12-02] MEDS: POTASSIUM CHLORIDE 20MEQ TABLET SR PO SCH (09:05)
[2021-12-02] MEDS: ASPIRIN 81MG EC TABLET PO SCH (09:05)
[2021-12-02] MEDS: CARVEDILOL 6.25 MG TABLET PO SCH (09:06)
[2021-12-02 11:59] VITALS: BP 136/74
[2021-12-02] MEDS ORDERED: FUROSEMIDE 40MG/4ML VIAL IVP NR (12:15)
[2021-12-02 16:00] VITALS: BP 106/74
[2021-12-02 17:50] VITALS: BP 106/74
[2021-12-03] MEDS ORDERED: METOLAZONE 2.5MG TABLET PO SCH (06:30)
== END 2021-12-02 18:50 | disposition home or self-care (01) | DRG 194 ==
LOC: ER 21:08 → EDBEDREQ 11-30 00:32 → EDBEDREQDT 11-30 00:32 → EDBEDREQTM 11-30 00:32 → ENRESERV 11-30 02:21 → ER 11-30 03:43 → 7EST 11-30 04:05
PROVIDERS: ADMIT Internal Medicine; ATTEND Internal Medicine
DX: I11.0 Hypertensive heart disease with heart failure (principal); N17.0 Acute kidney failure with tubular necrosis; E44.0 Moderate protein-calorie malnutrition; I50.23 Acute on chronic systolic (congestive) heart failure; I42.0 Dilated cardiomyopathy; E87.8 Other disorders of electrolyte and fluid balance, not elsewhere classified; E78.00 Pure hypercholesterolemia, unspecified; Z87.891 Personal history of nicotine dependence; E66.01 Morbid (severe) obesity due to excess calories; I08.3 Combined rheumatic disorders of mitral, aortic and tricuspid valves; G47.33 Obstructive sleep apnea (adult) (pediatric); Z68.42 Body mass index [BMI] 45.0-49.9, adult; Z79.899 Other long term (current) drug therapy
CPT/HCPCS: 36415; 71045; 80048; 80053; 80061; 83880; 84484; 85025; 93005; 93306; 99285; J1650; J1940

== ENCOUNTER 2022-03-17 11:23 | Inpatient (IN) | payer MEDICAID, OTHER ==
[~2022-03-17] VITALS: Ht 193 cm; Wt 174.6 kg
[~2022-03-17 11:23] MED LIST changes: +ALBU6.7H3 INH; -ALBU6.7H9 INH; +CARV6.2548 PO; -COR3 PO; +POTA8CAP20 PO
[2022-03-17] MEDS ORDERED: FUROSEMIDE 40MG/4 ML UDC PO NR (13:30)
[2022-03-17 14:43] LABS: HEMATOCRIT. 41.7 % (42.0-52.0); HEMOGLOBIN. 13.7 g/dL (14.0-18.0); MEAN CORPUSCULAR HEMOGLOBIN 31.7 pg (28.0-32.0); MEAN CORPUSCULAR VOLUME 96.5 fL (80.0-94.0); MEAN PLATELET VOLUME 9.6 fl (7.4-10.4); PLATELET 163 x1000/uL (130-400); RED BLOOD CELL COUNT 4.32 mill/uL (4.7-6.1); RED CELL DISTRIBUTION WIDTH 15.2 % (11.6-14.6)
[2022-03-17 14:44] LABS: CHLORIDE 109 mEq/L (98-107)
[2022-03-17 16:00] LABS: PLATELET ESTIMATE NORMAL
[2022-03-17] MEDS ORDERED: FUROSEMIDE 40MG/4ML VIAL IVP ONE (20:00)
[2022-03-18] VITALS (7 sets, daily range): BP systolic 107–143; BP diastolic 72–99
[2022-03-18] MEDS ORDERED: HYDROCODONE/ACETAMINOPHEN 5/325MG TABLET PO PRN (02:45)
[2022-03-18] MEDS ORDERED: POTA8CAP20 PO (02:51)
[2022-03-18] MEDS ORDERED: SPIR50TA5 PO (02:55)
[2022-03-18] MEDS ORDERED: FUROSEMIDE 40MG/4ML VIAL IVP SCH (09:00)
[2022-03-18] MEDS ORDERED: CARVEDILOL 6.25 MG TABLET PO SCH (09:00)
[2022-03-18] MEDS ORDERED: SPIRONOLACTONE 5MG/ML 1ML ORAL SYR(NEO) PO SCH (09:00)
[2022-03-18] MEDS: SPIRONOLACTONE 50MG TABLET PO SCH (09:02)
[2022-03-18] MEDS: ENOXAPARIN 40MG/0.4ML SYR SUBCUT SCH ×2 (09:02→20:27)
[2022-03-18] MEDS: LOSARTAN POTASSIUM 25 MG TABLET PO SCH (09:03)
[2022-03-18] MEDS: AMIODARONE HCL 200 MG TABLET PO SCH (09:03)
[2022-03-18] MEDS: ASPIRIN 81MG TABLET PO SCH (09:03)
[2022-03-18] MEDS ORDERED: NALOXONE HCL 0.4MG/ML VIAL IV PRN ×2 (12:00→13:00)
[2022-03-18] MEDS ORDERED: METOLAZONE 2.5MG TABLET PO NR (12:00)
[2022-03-18] MEDS: POTASSIUM CHLORIDE 8 MEQ TABLET.SA PO SCH ×2 (12:58→17:38)
[2022-03-18 12:59] LABS: BASOPHILS % 1.1 % (0.0-2.0); EOSINOPHILS % 3.1 % (0.0-5.0); HEMATOCRIT. 40.8 % (42.0-52.0); HEMOGLOBIN. 13.3 g/dL (14.0-18.0); LYMPHOCYTES % 32.1 % (20.0-50.0); MEAN CORPUSCULAR HEMOGLOBIN 31.5 pg (28.0-32.0); MEAN CORPUSCULAR VOLUME 96.7 fL (80.0-94.0); MEAN PLATELET VOLUME 9.5 fl (7.4-10.4); NEUTROPHILS % 55.7 % (40.0-76.0); PLATELET 156 x1000/uL (130-400); RED BLOOD CELL COUNT 4.23 mill/uL (4.7-6.1)
[2022-03-18] MEDS: FUROSEMIDE 100MG/10ML VIAL IVP SCH ×2 (12:59→20:26)
[2022-03-18 13:04] LABS: CHLORIDE 108 mEq/L (98-107)
[2022-03-18 13:14] LABS: HDL CHOLESTEROL 40 mg/dL (40-59); LDL CHOLESTEROL 98 mg/dL (5-100)
[2022-03-18] MEDS ORDERED: FUROSEMIDE 100MG/10ML VIAL IVP SCH (17:15)
[2022-03-18] MEDS ORDERED: ACETAMINOPHEN 325MG TABLET PO PRN (18:00)
[2022-03-18] MEDS: CARVEDILOL 12.5MG TABLET PO SCH (20:27)
[2022-03-19] VITALS: BP 95/53
[2022-03-19 04:00] VITALS: BP 106/67
[2022-03-19] MEDS: FUROSEMIDE 100MG/10ML VIAL IVP SCH ×3 (05:00→21:23)
[2022-03-19 08:00] VITALS: BP 132/82
[2022-03-19] MEDS: CARVEDILOL 12.5MG TABLET PO SCH ×2 (09:30→21:22)
[2022-03-19] MEDS: POTASSIUM CHLORIDE 8 MEQ TABLET.SA PO SCH ×2 (09:43→18:02)
[2022-03-19] MEDS: ASPIRIN 81MG TABLET PO SCH (09:43)
[2022-03-19] MEDS: AMIODARONE HCL 200 MG TABLET PO SCH (09:43)
[2022-03-19] MEDS: LOSARTAN POTASSIUM 25 MG TABLET PO SCH (09:44)
[2022-03-19] MEDS: SPIRONOLACTONE 50MG TABLET PO SCH (09:44)
[2022-03-19] MEDS: ENOXAPARIN 40MG/0.4ML SYR SUBCUT SCH ×2 (09:45→21:24)
[2022-03-19 12:00] VITALS: BP 116/83
[2022-03-19] MEDS ORDERED: METOLAZONE 2.5MG TABLET PO NR (13:15)
[2022-03-19 16:00] VITALS: BP 98/58
[2022-03-19 18:19] LABS: CHLORIDE 99 mEq/L (98-107)
[2022-03-19 20:00] VITALS: BP 145/82
[2022-03-20] VITALS: BP 106/68
[2022-03-20 04:00] VITALS: BP 107/73
[2022-03-20] MEDS: FUROSEMIDE 100MG/10ML VIAL IVP SCH ×2 (06:00→12:50)
[2022-03-20 08:00] VITALS: BP 115/72
[2022-03-20] MEDS: ASPIRIN 81MG TABLET PO SCH (08:31)
[2022-03-20] MEDS: LOSARTAN POTASSIUM 25 MG TABLET PO SCH (08:31)
[2022-03-20] MEDS: ENOXAPARIN 40MG/0.4ML SYR SUBCUT SCH (08:31)
[2022-03-20] MEDS: AMIODARONE HCL 200 MG TABLET PO SCH (08:31)
[2022-03-20] MEDS: POTASSIUM CHLORIDE 8 MEQ TABLET.SA PO SCH (08:32)
[2022-03-20] MEDS: CARVEDILOL 12.5MG TABLET PO SCH (08:45)
[2022-03-20] MEDS: SPIRONOLACTONE 50MG TABLET PO SCH (08:45)
[2022-03-20] MEDS ORDERED: POTASSIUM CHLORIDE 20MEQ TABLET SR PO NR ×2 (10:15→12:45)
[2022-03-20 12:00] VITALS: BP 116/80
[2022-03-20 12:04] LABS: BASOPHILS % 0.7 % (0.0-2.0); EOSINOPHILS % 4.1 % (0.0-5.0); HEMOGLOBIN. 14.9 g/dL (14.0-18.0); LYMPHOCYTES % 34.1 % (20.0-50.0); MEAN CORPUSCULAR HEMOGLOBIN 31.8 pg (28.0-32.0); NEUTROPHILS % 55.1 % (40.0-76.0); PLATELET 185 x1000/uL (130-400); RED BLOOD CELL COUNT 4.69 mill/uL (4.7-6.1)
[2022-03-20 12:38] VITALS: BP 115/72
[2022-03-20] MEDS ORDERED: POTASSIUM CHLORIDE 20MEQ TABLET SR PO ONE (12:45)
== END 2022-03-20 15:15 | disposition home or self-care (01) | DRG 194 ==
LOC: ER 11:23 → 8WST 21:06 → ENRESERV 23:30
PROVIDERS: ADMIT Internal Medicine; ATTEND Internal Medicine
DX: I11.0 Hypertensive heart disease with heart failure (principal); I27.20 Pulmonary hypertension, unspecified; I42.0 Dilated cardiomyopathy; I50.23 Acute on chronic systolic (congestive) heart failure; E66.01 Morbid (severe) obesity due to excess calories; Z68.42 Body mass index [BMI] 45.0-49.9, adult; D64.9 Anemia, unspecified; I08.3 Combined rheumatic disorders of mitral, aortic and tricuspid valves; E78.00 Pure hypercholesterolemia, unspecified; G47.33 Obstructive sleep apnea (adult) (pediatric); E78.5 Hyperlipidemia, unspecified; Z20.822 Contact with and (suspected) exposure to COVID-19; Z95.0 Presence of cardiac pacemaker
CPT/HCPCS: 36415; 71045; 80048; 80053; 80061; 83735; 83880; 84484; 85025; 87426; 87804; 93005; 93306; 93970; 99285; J1650; J1940

== ENCOUNTER 2023-07-09 12:15 | Inpatient (IN) | payer MEDICAID ==
[~2023-07-09] VITALS: Ht 193 cm; Wt 198.5 kg
[~2023-07-09 12:15] MED LIST changes: -CARV6.2548 PO; -FURO40TA5 MT; -LOSA25TA3 PO; -POTA8CAP20 PO; -SPIR25TA PO
[2023-07-09 13:23] LABS: BASOPHILS % 0.8 % (0.0-2.0); DIFFERENTIAL COMMENT 0; EOSINOPHILS % 3.1 % (0.0-5.0); HEMATOCRIT. 42.2 % (42.0-52.0); LYMPHOCYTES % 28.6 % (20.0-50.0); MEAN CORPUSCULAR HEMOGLOBIN 33.3 pg (28.0-32.0); MEAN CORPUSCULAR HGB CONC 33.2 g/dL (31.0-37.0); MEAN CORPUSCULAR VOLUME 100.5 fL (80.0-94.0); MEAN PLATELET VOLUME 9.3 fl (7.4-10.4); MONOCYTES % 7.1 % (2.0-8.0); NEUTROPHILS % 60.4 % (40.0-76.0); PLATELET 182 x1000/uL (130-400); RED CELL DISTRIBUTION WIDTH 13.9 % (11.6-14.6); WHITE BLOOD COUNT 5.9 x1000/uL (4.5-11.0)
[2023-07-09 13:27] LABS: INR 1.1; PROTHROMBIN TIME 11.9 sec (9.6-11.0)
[2023-07-09 13:35] LABS: ALANINE AMINOTRANSFERASE 31 IU/L (10-49); ALBUMIN 4.2 g/dL (3.2-4.8); ASPARTATE AMINOTRANSFERASE 30 IU/L (<34); BILIRUBIN TOTAL 1.1 mg/dL (0.1-1.0); CALCIUM 8.9 mg/dL (8.7-10.4); CARBON DIOXIDE 28 mEq/L (21-32); CHLORIDE 105 mEq/L (98-107); CREATININE 1.6 mg/dL (0.6-1.3); GLUCOSE 106 mg/dL (70-105); POTASSIUM 4.5 mEq/L (3.5-5.1); PROTEIN TOTAL 7.1 g/dL (6.0-8.3); SODIUM 139 mEq/L (136-145); TROPONIN I HIGH SENSITIVITY 22 ng/L (3.0-53); UREA NITROGEN BLOOD 16 mg/dL (9-23)
[2023-07-09] MEDS: ASPIRIN 325MG TABLET PO ONE (15:08)
[2023-07-09 21:13] VITALS: BP 122/86; PULSE 79; RESP 18; TEMP 97.9
[2023-07-09] MEDS: FUROSEMIDE 40MG TABLET PO SCH (22:15)
[2023-07-09] MEDS: CARVEDILOL 3.125 MG TABLET PO SCH (23:07)
[2023-07-10] VITALS (8 sets, daily range): BP systolic 98–117; BP diastolic 44–76; PULSE 68–103; RESP 18–20; TEMP 97.2–99.1; O2SAT 96
[2023-07-10] MEDS ORDERED: ALBUTEROL (0.083%) 2.5MG/3ML NEB HHN PRN (00:45)
[2023-07-10 06:34] LABS: HEMATOCRIT. 39.7 % (42.0-52.0); HEMOGLOBIN. 13.1 g/dL (14.0-18.0); LYMPHOCYTES % 35.7 % (20.0-50.0); MEAN CORPUSCULAR HEMOGLOBIN 32.9 pg (28.0-32.0); MEAN CORPUSCULAR HGB CONC 32.9 g/dL (31.0-37.0); MEAN CORPUSCULAR VOLUME 99.9 fL (80.0-94.0); MEAN PLATELET VOLUME 9.5 fl (7.4-10.4); MONOCYTES % 8.9 % (2.0-8.0); NEUTROPHILS % 50.4 % (40.0-76.0); PLATELET 146 x1000/uL (130-400); RED BLOOD CELL COUNT 3.97 mill/uL (4.7-6.1); RED CELL DISTRIBUTION WIDTH 13.7 % (11.6-14.6); WHITE BLOOD COUNT 5.9 x1000/uL (4.5-11.0)
[2023-07-10 07:05] LABS: CALCIUM 8.6 mg/dL (8.7-10.4); CREATININE 1.6 mg/dL (0.6-1.3); POTASSIUM 4.4 mEq/L (3.5-5.1)
[2023-07-10] MEDS: SPIRONOLACTONE 25MG TABLET PO SCH (08:53)
[2023-07-10] MEDS: ASPIRIN 81MG TABLET PO SCH (08:54)
[2023-07-10] MEDS: AMIODARONE HCL 200 MG TABLET PO SCH (08:54)
== END 2023-07-10 14:00 | disposition home or self-care (01) | DRG 194 ==
LOC: ER 13:48 → EDBEDREQ 14:54 → EDBEDREQTM 17:09 → EDBEDREQ 17:09 → 7EST 18:46
PROVIDERS: ADMIT Internal Medicine; ATTEND Internal Medicine
DX: I13.0 Hypertensive heart and chronic kidney disease with heart failure and stage 1 through stage 4 chronic kidney disease, or unspecified chronic kidney disease (principal); N17.9 Acute kidney failure, unspecified; I42.0 Dilated cardiomyopathy; Z68.43 Body mass index [BMI] 50.0-59.9, adult; N18.9 Chronic kidney disease, unspecified; H93.13 Tinnitus, bilateral; I50.23 Acute on chronic systolic (congestive) heart failure; E78.00 Pure hypercholesterolemia, unspecified; E66.01 Morbid (severe) obesity due to excess calories; G47.33 Obstructive sleep apnea (adult) (pediatric); Z87.891 Personal history of nicotine dependence; Z79.899 Other long term (current) drug therapy
CPT/HCPCS: 36415; 71045; 80048; 80053; 83880; 84484; 85025; 93005; 94660; 99285

== ENCOUNTER 2023-09-09 15:21 | Inpatient (IN) | payer MEDICAID, OTHER ==
[~2023-09-09] VITALS: Ht 193 cm; Wt 202.3 kg
[2023-09-09 15:55] LABS: BASOPHILS % 1.4 % (0.0-2.0); DIFFERENTIAL COMMENT 0; EOSINOPHILS % 6.1 % (0.0-5.0); HEMOGLOBIN. 14.5 g/dL (14.0-18.0); MEAN CORPUSCULAR HGB CONC 32.8 g/dL (31.0-37.0); MEAN CORPUSCULAR VOLUME 100.4 fL (80.0-94.0); MEAN PLATELET VOLUME 8.9 fl (7.4-10.4); MONOCYTES % 5.5 % (2.0-8.0); PLATELET 185 x1000/uL (130-400); RED BLOOD CELL COUNT 4.39 mill/uL (4.7-6.1); RED CELL DISTRIBUTION WIDTH 14.4 % (11.6-14.6); WHITE BLOOD COUNT 5.2 x1000/uL (4.5-11.0)
[2023-09-09 15:58] LABS: CHLORIDE 109 mEq/L (98-107); POTASSIUM 4.2 mEq/L (3.5-5.1); SODIUM 141 mEq/L (136-145)
[2023-09-09 15:59] LABS: CARBON DIOXIDE 24 mEq/L (21-32)
[2023-09-09 16:00] LABS: CALCIUM 9.6 mg/dL (8.7-10.4)
[2023-09-09 16:04] LABS: CREATININE 1.5 mg/dL (0.6-1.3); GLUCOSE 101 mg/dL (70-105); UREA NITROGEN BLOOD 16 mg/dL (9-23)
[2023-09-09 16:05] LABS: TROPONIN I HIGH SENSITIVITY 23 ng/L (3.0-53)
[2023-09-09 20:00] VITALS: BP 113/45; PULSE 78; RESP 20; TEMP 98.6
[2023-09-09] MEDS: FUROSEMIDE 40MG/4ML VIAL IVP ONE (21:00)
[2023-09-09] MEDS: HYDROCODONE/ACETAMINOPHEN 10/325MG TABLET PO PRN (22:06)
[2023-09-09] MEDS: MELATONIN 3MG TABLET PO SCH (23:52)
[2023-09-10] VITALS (8 sets, daily range): BP systolic 105–134; BP diastolic 60–81; PULSE 69–75; RESP 19–21; TEMP 97.2–98.4
[2023-09-10 07:15] LABS: CARBON DIOXIDE 25 mEq/L (21-32); CHLORIDE 107 mEq/L (98-107); SODIUM 140 mEq/L (136-145)
[2023-09-10 07:16] LABS: BASOPHILS % 0.9 % (0.0-2.0); CALCIUM 9.1 mg/dL (8.7-10.4); DIFFERENTIAL COMMENT 0; EOSINOPHILS % 5.9 % (0.0-5.0); HEMATOCRIT. 41.2 % (42.0-52.0); HEMOGLOBIN. 13.3 g/dL (14.0-18.0); LYMPHOCYTES % 40.7 % (20.0-50.0); MEAN CORPUSCULAR HGB CONC 32.4 g/dL (31.0-37.0); MEAN CORPUSCULAR VOLUME 101.9 fL (80.0-94.0); MEAN PLATELET VOLUME 9.2 fl (7.4-10.4); MONOCYTES % 7.6 % (2.0-8.0); NEUTROPHILS % 44.9 % (40.0-76.0); PLATELET 165 x1000/uL (130-400); RED BLOOD CELL COUNT 4.05 mill/uL (4.7-6.1); RED CELL DISTRIBUTION WIDTH 14.7 % (11.6-14.6); WHITE BLOOD COUNT 5.7 x1000/uL (4.5-11.0)
[2023-09-10 07:20] LABS: CREATININE 1.5 mg/dL (0.6-1.3); GLUCOSE 95 mg/dL (70-105)
[2023-09-10 07:21] LABS: LDL CHOLESTEROL 110 mg/dL (5-100); TRIGLYCERIDE 86 mg/dL (0-150); TROPONIN I HIGH SENSITIVITY 25 ng/L (3.0-53); UREA NITROGEN BLOOD 15 mg/dL (9-23)
[2023-09-10 07:22] LABS: CHOLESTEROL 154 mg/dL (<200)
[2023-09-10 07:23] LABS: HDL CHOLESTEROL 40 mg/dL (>55)
[2023-09-10 07:44] LABS: HEPATITIS B SURFACE ANTIGEN NEGATIVE (Negative)
[2023-09-10 08:06] LABS: HEPATITIS C AB NON REACTIVE (Neg) (Negative)
[2023-09-10] MEDS: FUROSEMIDE 40MG/4ML VIAL IVP SCH (08:56)
[2023-09-10] MEDS: ASPIRIN 81MG TABLET PO SCH (08:57)
[2023-09-10] MEDS: AMLODIPINE 10MG TABLET PO SCH (08:59)
[2023-09-10] MEDS: FAMOTIDINE 20MG TABLET PO SCH (09:00)
[2023-09-10] MEDS: ENOXAPARIN 40MG/0.4ML SYR SUBCUT SCH (09:00)
[2023-09-10] MEDS: FUROSEMIDE 40MG/4ML VIAL IVP NR (12:15)
[2023-09-10] MEDS: METOLAZONE 2.5MG TABLET PO NR (13:30)
[2023-09-10] MEDS: ATORVASTATIN CALCIUM 20MG TABLET PO SCH (21:05)
[2023-09-11] VITALS (8 sets, daily range): BP systolic 103–137; BP diastolic 68–96; PULSE 74–78; RESP 18–28; TEMP 97.4–98.4; O2SAT 100
[2023-09-11] MEDS: CARVEDILOL 6.25 MG TABLET PO SCH (09:25)
[2023-09-11] MEDS: LOSARTAN 25 MG TABLET PO SCH (09:25)
[2023-09-11] MEDS ORDERED: NITROGLYCERIN 0.4MG TABLET SL SL PRN (13:30)
[2023-09-11] MEDS ORDERED: FURO80TA87 MT (16:08)
[2023-09-11] MEDS ORDERED: KETOROLAC 30MG/ML VIAL IV PRN (16:15)
[2023-09-11] MEDS ORDERED: METOLAZONE 2.5MG TABLET PO NR (16:15)
== END 2023-09-11 17:45 | disposition home or self-care (01) | DRG 194 ==
LOC: ER 15:21 → 7WST 18:17 → EDBEDREQTM 18:26 → EDBEDREQ 18:26
PROVIDERS: ADMIT Internal Medicine; ATTEND Internal Medicine
PROC: 5A09357 Assistance with Respiratory Ventilation, Less than 24 Consecutive Hours, Continuous Positive Airway Pressure (ICD-10-PCS; principal; 2023-09-10)
PROC: 5A09357 Assistance with Respiratory Ventilation, Less than 24 Consecutive Hours, Continuous Positive Airway Pressure (ICD-10-PCS; 2023-09-11)
DX: I13.0 Hypertensive heart and chronic kidney disease with heart failure and stage 1 through stage 4 chronic kidney disease, or unspecified chronic kidney disease (principal); N17.9 Acute kidney failure, unspecified; I50.23 Acute on chronic systolic (congestive) heart failure; E66.01 Morbid (severe) obesity due to excess calories; N18.9 Chronic kidney disease, unspecified; E78.00 Pure hypercholesterolemia, unspecified; R07.89 Other chest pain; G47.33 Obstructive sleep apnea (adult) (pediatric); I42.8 Other cardiomyopathies; F17.210 Nicotine dependence, cigarettes, uncomplicated; Z95.810 Presence of automatic (implantable) cardiac defibrillator; Z68.43 Body mass index [BMI] 50.0-59.9, adult
CPT/HCPCS: 36415; 71045; 80048; 80061; 84484; 85025; 86705; 87340; 93005; 93306; 94660; 99291; J1650; J1940